=== PATIENT | female | born 1995 | race Caucasian/White ===

== ENCOUNTER → 2019-04-22 | Outpatient (CLI) | payer SELFPAY ==
[2019-04-22] VITALS (7 sets, daily range): BP systolic 120–147; BP diastolic 63–89
[~2019-04-22] VITALS: Ht 162.6 cm; Wt 111.4 kg
[~2019-04-22] MED LIST: LIDOCAINE 1% INJ 20 ML 20 ML VIAL ONE; NS IV 500 ML 500 ML IV SCH
[2019-04-22 16:01] LABS: BASOPHILS % (AUTO) 0 % (0-10); EOSINOPHILS # (AUTO) 0.1 10^3/uL (0.0-0.3); EOSINOPHILS % (AUTO) 1 % (0-10); HEMATOCRIT 21 % (35-52); LYMPHOCYTES # (AUTO) 1.8 X 10^3 (1.0-4.0); LYMPHOCYTES % (AUTO) 23 % (12-44); MEAN CORPUSCULAR HEMOGLOBIN 16 PG (25-34); MEAN CORPUSCULAR HGB CONC 27 G/DL (32-36); MEAN CORPUSCULAR VOLUME 59 FL (80-99); MEAN PLATELET VOLUME 10.8 FL (7.4-10.4); MONOCYTES # (AUTO) 0.4 X 10^3 (0.0-1.0); MONOCYTES % (AUTO) 5 % (0-12); NEUTROPHILS # (AUTO) 5.7 X 10^3 (1.8-7.8); NEUTROPHILS % (AUTO) 71 % (42-75); PLATELET COUNT 545 10^3/uL (130-400); WHITE BLOOD COUNT 7.9 10^3/uL (4.3-11.0)
[2019-04-22 16:02] LABS: HEMOGLOBIN 5.6 G/DL (11.5-16.0)
[2019-04-22 16:03] LABS: SMEAR SCAN COMMENT YES
[2019-04-22 23:36] LABS: BASOPHILS % (AUTO) 0 % (0-10); EOSINOPHILS # (AUTO) 0.1 10^3/uL (0.0-0.3); EOSINOPHILS % (AUTO) 1 % (0-10); HEMATOCRIT 26 % (35-52); HEMOGLOBIN 7.8 G/DL (11.5-16.0); LYMPHOCYTES # (AUTO) 2.8 X 10^3 (1.0-4.0); LYMPHOCYTES % (AUTO) 27 % (12-44); MEAN CORPUSCULAR HEMOGLOBIN 19 PG (25-34); MEAN CORPUSCULAR HGB CONC 30 G/DL (32-36); MEAN CORPUSCULAR VOLUME 63 FL (80-99); MONOCYTES % (AUTO) 9 % (0-12); NEUTROPHILS # (AUTO) 6.5 X 10^3 (1.8-7.8); NEUTROPHILS % (AUTO) 63 % (42-75); PLATELET COUNT 354 10^3/uL (130-400); RED CELL DISTRIBUTION WIDTH 29.2 % (10.0-14.5); WHITE BLOOD COUNT 10.4 10^3/uL (4.3-11.0)
[2019-04-23 00:20] VITALS: BP 147/89
--- NOTE | 2019-04-23 00:20 | NUR ---
INFORMED DR. WASHINGTON THAT PTS HGB-7.8. TELEPHONE ORDERS RECEIVED- OKAY TO DC PATIENT.
== END ==
LOC: SDC 14:47
PROVIDERS: ATTEND Family Medicine
DX: D62 Acute posthemorrhagic anemia (principal)
CPT/HCPCS: 36415; 36430; 85025; 86850; 86900; 86901; 86920

== ENCOUNTER 2019-04-24 04:52 | Emergency (ER) | payer SELFPAY ==
[~2019-04-24] VITALS: Ht 162.5 cm; Wt 111.4 kg
--- NOTE | 2019-04-24 05:32 | ED General ---
General Chief Complaint: Chest Wall Stated Complaint: CHEST PAINS, BACK PAIN, POST BLOOD TRANSFUSION Source of Information: Patient Exam Limitations: No Limitations (SARAH WILSON MED STUDENT) History of Present Illness Date Seen by Provider: Apr 24, 2019 Time Seen by Provider: 04:59 Initial Comments Pt presents to ED with chest pain two days after receiving a blood transfusion. Chest pain is substernal and radiates into her arm and around to her back. Pain is intermittent and is made worse by lying supine, improves with sitting upright. Denies fever, chills, diaphoresis, nausea, or vomiting. Blood transfusion was initiated after pt presented to [facility] for appointment regarding metromenorrhagia and anemia of 4.8 Hgb was discovered on fingerstick. Timing/Duration: 1-2 Days Severity: Mild Modifying Factors: improves with Immobilization, improves with Rest Associated Systoms: Chest Pain; No Cough, No Diaphoresis, No Fever/Chills, No Malaise, No Nausea/Vomiting, No Rash, No Shortness of Air, No Syncope (SARAH WILSON MED STUDENT) Allergies and Home Medications Allergies Coded Allergies: erythromycin base (Verified Adverse Reaction, Unknown, 04/22/19) Patient Home Medication List Home Medication List Reviewed: Yes (SARAH WILSON MED STUDENT) Review of Systems Review of Systems Constitutional: No chills, No diaphoresis, No fever, No malaise, No weakness EENTM: No hearing loss, No ear pain, No eye pain, No vision loss, No mouth pain, No nose pain, No throat pain Respiratory: No cough, No dyspnea on exertion, No short of breath Cardiovascular: chest pain; No edema, No palpitations, No syncope Gastrointestinal: No abdominal pain, No constipation, No diarrhea, No dysphagia, No nausea, No vomiting Genitourinary: No incontinence, No pain Musculoskeletal: back pain; No joint pain Skin: No lesions, No lumps, No rash Psychiatric/Neurological: Anxiety; Denies Depressed Hematologic/Lymphatic: Anemia; Denies Easy Bleeding, Denies Easy Bruising (SARAH WILSON MED STUDENT) Past Qlhhgbb-Qjrpjo-Luqsvw Hx Patient Social History Recent Foreign Travel: No Contact w/Someone Who Travel: No (SARAH WILSON MED STUDENT) Family Medical History Other Conditions/Hx (hyperthyroid - mother ) (HUNDERTMARK,SARAH,MED STUDENT) Physical Exam Vital Signs Vital Signs - First Documented 04/24/19 05:00 Temp 36.4 Pulse 90 Resp 20 B/P (MAP) 146/105 (119) (UMESH ROBLERO MD) Vital Signs Capillary Refill : (SARAH WILSON MED STUDENT) Height, Weight, BMI Height: '" Weight: lbs. oz. kg; BMI Method: General Appearance: No Apparent Distress, WD/WN, Obese Eyes: Bilateral Eye Normal Inspection, Bilateral Eye PERRL, Bilateral Eye EOMI HEENT: TMs Normal, Normal ENT Inspection, Pharynx Normal Neck: Non Tender, Supple Respiratory: Chest Non Tender, Lungs Clear, Normal Breath Sounds, No Accessory Muscle Use, No Respiratory Distress Cardiovascular: No Edema, No Gallop, No JVD, No Murmur, Normal Peripheral Pulses, Tachycardia Gastrointestinal: Non Tender, Soft Back: No CVA Tenderness, No Vertebral Tenderness Extremity: Normal Capillary Refill, No Calf Tenderness, No Pedal Edema Neurologic/Psychiatric: Alert, Oriented x3, Normal Mood/Affect Skin: Normal Color, Warm/Dry Lymphatic: No Adenopathy (SARAH WILSON MED STUDENT) Progress/Results/Core Measures Suspected Sepsis SIRS Temperature: Pulse: Respiratory Rate: Blood Pressure / Mean: (SARAH WILSON MED STUDENT) Results/Orders Vital Signs/I&O 04/24/19 05:00 Temp 36.4 Pulse 90 Resp 20 B/P (MAP) 146/105 (119) (UMESH ROBLERO MD) Vital Signs/I&O Capillary Refill : (SARAH WILSON MED STUDENT) Progress Note : Time: 05:14 Progress Note Seen and evaluated. Ordered CXR to r/o acute lung injury. Pt continues to be tachycardic. Reassured pt she was not having a reaction to the blood transfusion currently. Pt is extremely anxious being in the hospital, her anemia, and metromenorrhagia. Instructed pt she should follow up with the [facility] regarding these issues. (SARAH WILSON MED STUDENT) Progress Note : Time: 06:53 Progress Note 6:51 am I examined the patient and reviewed the history with the medical student. Pt's chest pain is gone. It was mild and intermittent starting 2 days after transfusion. Pt's cxr is normal. She is quite anxious and her intermittent resting tachycardia resolves quickly with reassurance. She has a plan for evaluation at [facility] tomorrow for hormonal treatment for her vaginal bleeding. She and her boyfriend are comfortable with resting at home today, close follow up at [facility] tomorrow, and coming back if she has any further problems to the ED. (UMESH ROBLERO MD) Departure Impression Primary Impression: Chest wall pain Disposition: 01 HOME, SELF-CARE Condition: Improved Departure-Patient Inst. Decision time for Depature: 07:00 (UMESH ROBLERO MD) Referrals: [facility],LOCAL PHYSICIAN (PCP) Primary Care Physician Patient Instructions: Pleuritic Chest Pain (DC) Add. Discharge Instructions: Rest at home today. Close follow up with [facility] as scheduled tomorrow. Come back if any problems to the Emgency Department today. All discharge instr uctions reviewed with patient and/or family. Voiced understanding. SARAH WILSON,MED STUDENT Apr 24, 2019 05:32 UMESH WASHINGTON MD Apr 24, 2019 07:00 POS
--- NOTE | 2019-04-24 06:25 | Diagnostic Imaging Report ---
INDICATION: Chest pain. COMPARISON: None available TECHNIQUE: Frontal and lateral radiographs of the chest dated 04/24/2019. FINDINGS: The cardiac silhouette and pulmonary vasculature are within normal limits. The lungs are clear. No pleural effusion. No pneumothorax. No acute osseous abnormality. IMPRESSION: No acute cardiopulmonary abnormality. Dictated by: Dictated on workstation # [id number]
--- NOTE | 2019-04-24 07:02 | NUR ---
ASSUMED CARE OF PT.
[2019-04-24 07:05] VITALS: BP 138/67
--- OUTSIDE RECORDS SUMMARY | 2019-05-19 17:04 | XMS REPORT ---
Author Author Gilda Berry Organization [facility] Address [address] [place] [address] Care Team Providers Care Reference Data Expert Name Role Phone alfredEZETRACEY WATSON Unavailable PROBLEMS Unknown Problems ALLERGIES No Information ENCOUNTERS Encounter Location Date Diagnosis [facility] [address] [facility] [id number] [place] [id number] Apr, Cough R05 ; Cough headache G44.83 ; Non- intractable vomiting with nausea, unspecified vomiting type R11.2 ; Acute nasopharyngitis J00 and BMI 40.0-44.9, adult Z68.[address] [place] [address], [place] [id number] Feb, test negative Z32.02 [facility] [id number] [place] [id number] Jan, Viral enteritis A08.4 and Acute nonintra ctable headache, unspecified headache type R51 [facility] [id number] [place], [place] [id number] Dec, Acute pharyngitis, unspecified etiology J02.9 [facility] [id number] [place] [address], [place] [id number] Nov, Screening for tuberculosis Z11.1 and Vis it for TB skin test Z11.1 [place] [address] [facility] [address] [id number] [id number] Oct, Dental examination V72.2 [facility] [address] [place] [id number] [address] [place] [phone] Aug, [facility] [address] [place] [id number] [address] [place] [phone] Aug, [place] [id number] [place] [address], [place] [id number] May, [facility] [address] [id number] [address] [place] [phone] May, [facility] [address] [id number] [place] [id number] Dec, [facility] [address] [id number] [address] [place] [phone] Dec, [facility] [address] [id number] [place] [id number] Nov, [facility] [address] [id number] [address] [place] [phone] Nov, [facility] [address] [id number] [address] [place] [phone] Nov, [facility] [address] [id number] [place] [id number] Nov, [facility] [address] [id number] [place] [id number] Jul, [facility] [address] [id number] [address] [place] [phone] Jul, [facility] [address] [id number] [place] [id number] Nov, [facility] [address] [facility] [id number] [address] [place] [phone] May, [facility] [address] [id number] [address] [place] [phone] May, [facility] [address] [id number] [place] [id number] Dec, IMMUNIZATIONS No Known Immunizations SOCIAL HISTORY Never Assessed REASON FOR VISIT PLAN OF CARE VITAL SIGNS Height 64 in 2014-05-31 Weight 180 lbs 2014-05-31 Temperature 99 degrees Fahrenheit 2014-05-31 Heart Rate 84 bpm 2014-05-31 Respiratory Rate 16 2014-05-31 Blood pressure systolic 118 mmHg 2014-05-31 Blood pressure diastolic 78 mmHg 2014-05-31 MEDICATIONS No Known Medications RESULTS No Results PROCEDURES No Known procedures INSTRUCTIONS MEDICATIONS ADMINISTERED No Known Medications MEDICAL (GENERAL) HISTORY Type Description Date Hospitalization History Migraine
--- OUTSIDE RECORDS SUMMARY | 2019-05-19 17:04 | XMS REPORT ---
Author Author Migration, Summer Doctor Organization [facility] Address Unknown Phone Unavailable Care Team Providers Care Audit Senior Associate Name Role Phone Migration, Doctor Unavailable Unavailable PROBLEMS Unknown Problems ALLERGIES No Information ENCOUNTERS Encounter Location Date Diagnosis [id number], [place] [id number] Apr, Cough R05 ; Cough headache G44.83 ; Non- intractable vomiting with nausea, unspecified vomiting type R11.2 ; Acute nasopharyngitis J00 and BMI 40.0-44.9, adult Z68.[address] [place] [address], [place] [id number] Feb, test negative Z32.02 [place] [id number] [place] [address], [place] [id number] Jan, Viral enteritis A08.4 and Acute nonintra ctable headache, unspecified headache type R51 [address], [place] [id number] Dec, Acute pharyngitis, unspecified etiology J02.[address] [id number] [place], [place] [id number] Nov, Screening for tuberculosis Z11.1 and Vis it for TB skin test Z11.[address] [id number] [place] [id number] Oct, Dental examination V72.2 [facility] [address] [facility] [id number] [address] [place] [phone] Aug, [facility] [address] [facility] [id number] [address] [place] [phone] Aug, [address] [id number] [place] [id number] May, [facility] [address] [place] [id number] [address] [place] [phone] May, [facility] [address] [id number] [place] [id number] Dec, [facility] [address] [id number] [address] [place] [phone] Dec, [facility] [address] [facility] [id number] [place] [id number] Nov, [facility] [address] [facility] [id number] [address] [place] [phone] Nov, [facility] [address] [facility] [id number] [address] [place] [phone] Nov, [facility] [address] [facility] [id number] [place] [id number] Nov, [facility] [place] [address] [facility] [id number] [place] [id number] Jul, [facility] [address] [facility] [id number] [address] [place] [phone] Jul, [facility] [address] [facility] [id number] [place] [id number] Nov, [facility] [address] [facility] [id number] [address] [place] [phone] May, [facility] [address] [facility] [id number] [address] [place] [phone] May, [facility] [address] [facility] [id number] [place] [id number] Dec, IMMUNIZATIONS No Known Immunizations SOCIAL HISTORY Never Assessed REASON FOR VISIT PLAN OF CARE VITAL SIGNS MEDICATIONS No Known Medications RESULTS No Results PROCEDURES No Known procedures INSTRUCTIONS MEDICATIONS ADMINISTERED No Known Medications MEDICAL (GENERAL) HISTORY Type Description Date Hospitalization History Migraine
--- OUTSIDE RECORDS SUMMARY | 2019-05-19 17:05 | XMS REPORT ---
Author Author Gilda BARAJAS [facility] Address [address] [place] [address] Care Team Providers Care Cattle Sorter Name Role Phone SHIV BARAJAS Unavailable PROBLEMS Type Condition ICD9-CM Code [id number] Code Onset Dates Condition S tatus SNOMED Code Assessment Viral enteritis A08.4 Jan, Active 70709960 Problem Other general medical examination for administrative purpo ses V70.3 Active 20749195 Problem Allergic rhinitis, cause unspecified 477.9 Active 01675308 Assessment Acute nonintractable headache, unspecified headache ty pe R51 Jan, Active 58937236 Problem Unspecified pruritic disorder 698.9 Active 950209394 Problem Contact dermatitis and other eczema, due to unspecified ca use 692.9 Active 88960398 Problem Influenza with other respiratory manifestations 487.1 Active 9679275 Problem Neck sprain and strain 847.0 Active 516426665 Problem Acute upper respiratory infections of unspecified site 465.9 Active 52602085 Problem Hypertrophy of tonsils alone 474.11 A ctive 59882940 ALLERGIES Substance Reaction Event Type Date Status N.K.D.A. Unknown Non Drug Allergy Jan, Unknown SOCIAL HISTORY No smoking Hx information available PLAN OF CARE VITAL SIGNS Height 64 in 2016-02-08 Weight 225.6 lbs 2016-02-08 Heart Rate 76 bpm 2016-02-08 Respiratory Rate 12 2016-02-08 BMI 38.72 kg/m2 2016-02-08 Blood pressure systolic 116 mmHg 2016-02-08 Blood pressure diastolic 70 mmHg 2016-02-08 MEDICATIONS Medication Instructions Dosage Frequency Start Date End Date Duration S tatus Qjdtfqhpee-VNOV-Ianafywi 50-325-40 MG Orally every 4 hrs 1 tablet a s needed 4h Jan, Active Zofran ODT 4 MG Orally every 8 hrs 1 tablet on the tongue and al low to dissolve 8h Jan, 30 day(s) Active Phentermine HCl 37.5 MG Orally Once a day 1.5 tablets 24h Active RESULTS No Results PROCEDURES Procedure Date Ordered Related Diagnosis Body Site Office Visit, Est Pt., Level 3 Feb 08, 2016 IMMUNIZATIONS No Known Immunizations
--- OUTSIDE RECORDS SUMMARY | 2019-05-19 17:05 | XMS REPORT ---
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 Name Role Phone RILEY RAMOS CP Unavailable Allergies No Known Allergies Problems Problem Type Condition Code Onset Dates Condition Statu s Assessment Visit for TB skin test Z11.1 Activ e Problem Allergic rhinitis, cause unspecified 477.9 Active Assessment Screening for tuberculosis Z11.1 A ctive Problem Contact dermatitis and other eczema, due to unspecifie d cause 692.9 Active Problem Acute upper respiratory infections of unspecified site 465.9 Active Problem Unspecified pruritic disorder 698.9 Active Problem Neck sprain and strain 847.0 Activ e Problem Other general medical examination for administrative p urposes V70.3 Active Problem Hypertrophy of tonsils alone 474.11 Active Problem Influenza with other respiratory manifestations 487.1 Active Medications No Known Medications Procedures Procedure Coding System Code Date TB INTRADERMAL TEST CPT-4 92183 December 10 6 Results No Known Results Summary Purpose [employer] Submission
--- OUTSIDE RECORDS SUMMARY | 2019-05-19 17:05 | XMS REPORT ---
Author Author Gilda RAMOS Organization [employer] Address Unknown Phone Unavailable Care Team Providers Care Cooper Apprentice Name Role Phone RILEY RAMOS CP Unavailable Allergies, Adverse Reactions, Alerts Substance Reaction Event Type N.K.D.A. Info Not Available Non Drug Allergy Problems Problem Type Condition Code Onset Dates Condition Statu s Problem Allergic rhinitis, cause unspecified 477.9 Active Assessment Acute pharyngitis, unspecified etiology J02.9 Active Problem Contact dermatitis and other eczema, due [...] Medications Procedures Procedure Coding System Code Date Office Visit, Est Pt., Level 3 CPT-4 20565 A 2015 Vital Signs Date/Time: Dec 25, 2015 Cardiac Monitoring Heart Rate 80 bpm Weight 229 lbs Height 64 in Wt Percentile 98.92 % BMI 39.30 Index Blood Pressure Diastolic 64 mmHg Blood Pressure Systolic 120 mmHg BMIPercentile 98.45 % Results No Known Results Summary Purpose [employer] Submission
--- OUTSIDE RECORDS SUMMARY | 2019-05-19 17:05 | XMS REPORT ---
Author Author Gilda THOMASHA Organization [facility] Address [address] [place] [address] Care Team Providers Care Senior Foreman Name Role Phone JC THOMAS Unavailable PROBLEMS Unknown Problems ALLERGIES Substance Reaction Event Type Date Status Erythromycin Base redness, itchy Drug Allergy Apr, Active ENCOUNTERS Encounter Location Date Diagnosis [place] [id number] [place] [address], [place] [id number] Apr, Cough R05 ; Cough headache G44.83 ; Non- intractable vomiting with nausea, unspecified vomiting type R11.2 ; Acute nasopharyngitis J00 and BMI 40.0-44.9, adult Z68.41 [place] [id number] [place] [address], [place] [id number] Feb, test negative Z32.02 [place] [id number] [place] [address], S [id number] Jan, Viral enteritis A08.4 and Acute nonintra ctable headache, unspecified headache type R51 [place] [id number] [place] [address], [place] [id number] Dec, Acute pharyngitis, unspecified etiology J02.9 [place] [id number] [place], [place] [address], [place] [id number] Nov, Screening for tuberculosis Z11.1 and Vis it for TB skin test Z11.1 [place] [address] [facility] [id number] [place] [id number] Oct, Dental examination V72.2 [facility] [address] [place] [phone] Aug, [facility] [address] [place] [id number] [address] [place] [phone] Aug, [facility] [address] [id number] [place] [id number] May, [facility] [address] [id number] [address] [place] [phone] May, [facility] [address] [id number] [place] [id number] Dec, [facility] [address] [id number] [address] [place] [phone] Dec, [facility] [address] [id number] [place] [id number] Nov, [facility] [address] [id number] [address] [place] [phone] Nov, [facility] [address] [facility] [id number] [address] [place] [phone] Nov, [facility] [address] [id number] [place] [id number] Nov, [facility] [address] [id number] [place] [id number] Jul, [facility] [address] [facility] [id number] [address] [place] [phone] Jul, [facility] [address] [id number] [place] [id number] Nov, [facility] [address] [facility] [id number] [address] [place] [phone] May, [facility] [address] [id number] [address] [place] [phone] May, [facility] [address] [id number] [place] [id number] Dec, IMMUNIZATIONS No Known Immunizations SOCIAL HISTORY Never Assessed REASON FOR VISIT Vomiting/Cough/headache for 2 days Phong LEBRON PLAN OF CARE Activity Details Follow Up if s/s not improving with PC P or in Clinic Reason: VITAL SIGNS Height 64 in 2017-04-21 Weight 254.8 lbs 2017-04-21 Temperature 98.6 degrees Fahrenheit 2017-04-21 Heart Rate 102 bpm 2017-04-21 Respiratory Rate 18 2017-04-21 Oximetry 99 % 2017-04-21 BMI 43.73 kg/m2 2017-04-21 Blood pressure systolic 112 mmHg 2017-04-21 Blood pressure diastolic 68 mmHg 2017-04-21 MEDICATIONS Medication Instructions Dosage Frequency Start Date End Date Duration S yennyus Pseudoephedrine HCl 30 MG Orally every 6 hrs 1 tablet as needed 6h Apr, 05 days Active Phenergan 25 MG Orally every 6 hrs 1 tablet as needed 6h 2016Apr, 03 days Active Ibuprofen 800 MG Orally Three times a day 1 tablet with food or milk as needed 8h Apr, Apr, 07 days Active RESULTS No Results PROCEDURES Procedure Date Ordered Result Body Site MEASURE BLOOD OXYGEN LEVEL Apr 21, 2017 INSTRUCTIONS MEDICATIONS ADMINISTERED No Known Medications MEDICAL (GENERAL) HISTORY Type Description Date Hospitalization History Migraine
--- OUTSIDE RECORDS SUMMARY | 2019-05-19 17:05 | XMS REPORT ---
Author Author Migration, Summer Doctor Organization [facility] Address Unknown Phone Unavailable Care Team Providers Care Rayon Winder Name Role Phone Migration, Doctor Unavailable Unavailable PROBLEMS Unknown Problems ALLERGIES No Information ENCOUNTERS Encounter Location Date Diagnosis [id number], [place] [id number] Apr, Cough R05 ; Cough headache G44.83 ; Non- intractable vomiting with nausea, unspecified vomiting type R11.2 ; Acute nasopharyngitis J00 and BMI 40.0-44.9, adult Z68.[id number] [place] [address], [place] [id number] Feb, test negative Z32.02 [place] [id number] [place] [address], [place] [id number] Jan, Viral enteritis A08.4 and Acute nonintra ctable headache, unspecified headache type R51 [id number], [place] [id number] Dec, Acute pharyngitis, unspecified etiology J02.[address] [id number] [place] [id number] Nov, Screening for tuberculosis Z11.1 and Vis it for TB skin test Z11.[address] [id number] [id number] Oct, Dental examination V72.2 [facility] [address] [facility] [id number] [address] [place] [phone] Aug, [facility] [address] [facility] [id number] [address] [place] [phone] Aug, [facility] [address] [facility] [id number] [place] [id number] May, [facility] [address] [place] [id number] [address] [place] [phone] May, [facility] [address] [id number] [place] [id number] Dec, [facility] [address] [id number] [address] [place] [phone] Dec, [facility] [address] [facility] [id number] [place] [id number] Nov, [facility] [address] [facility] [id number] [address] [place] [phone] Nov, [facility] [address] [facility] [id number] [address] [place] [phone] Nov, [facility] [address] [facility] [id number] [place] [id number] Nov, [facility] [address] [facility] [id number] [place] [id number] Jul, [facility] [address] [facility] [id number] [address] [place] [phone] Jul, [facility] [address] [facility] [id number] [place] [id number] Nov, [facility] [address] [facility] [id number] [address] [place] [phone] May, [facility] [address] [facility] [id number] [address] [place] [phone] May, [facility] [address] [facility] [id number] [place] [id number] Dec, IMMUNIZATIONS No Known Immunizations SOCIAL HISTORY Never Assessed [place]AS[place] FOR [place] VITAL SIGNS MEDICATIONS No Known Medications RESULTS No Results PROCEDURES No Known procedures INSTRUCTIONS MEDICATIONS ADMINISTERED No Known Medications MEDICAL (GENERAL) HISTORY Type Description Date Hospitalization History Migraine
--- OUTSIDE RECORDS SUMMARY | 2019-05-19 17:05 | XMS REPORT ---
Author Author Gilda WITT Y Organization [employer] Address Unknown Phone Unavailable Care Team Providers Care [place] Name Role Phone DIVYA WITT CP Unavailable Allergies No Known Allergies Problems Problem Type Condition Code Onset Dates Condition Statu s Problem Allergic rhinitis, cause unspecified 477.9 Active Assessment test negative Z32.02 Acti ve Problem Contact dermatitis and other eczema, due [...] Medications Procedures Procedure Coding System Code Date URINE TEST CPT-4 38420 Feb 20 6 Results Name Result Date Reference Range Unit Abnormali ty Flag TEST, URINE (IN HOUSE) ----RESULTS neg [id number] ----Lot # [id number] ----Control + [id number] ----Exp date 08/15/1720160221 Summary Purpose [employer] Submission
--- OUTSIDE RECORDS SUMMARY | 2019-05-19 17:05 | XMS REPORT ---
Author Author Migration, Summer Doctor Organization [facility] Address Unknown Phone Unavailable Care Team Providers Care Hospital Insurance Representative Name Role Phone Migration, Doctor Unavailable Unavailable PROBLEMS Unknown Problems ALLERGIES No Information ENCOUNTERS Encounter Location Date Diagnosis [address], [place] [id number] Apr, Cough R05 ; Cough headache G44.83 ; Non- intractable vomiting with nausea, unspecified vomiting type R11.2 ; Acute nasopharyngitis J00 and BMI 40.0-44.9, adult Z68.[address] [place] [address], [place] [id number] Feb, test negative Z32.02 [place] [id number] [place] [address], [place] [id number] Jan, Viral enteritis A08.4 and Acute nonintra ctable headache, unspecified headache type R51 [address], [place] [id number] Dec, Acute pharyngitis, unspecified etiology J02.[address] [id number] [place], [place] [id number] Nov, Screening for tuberculosis Z11.1 and Vis it for TB skin test Z11.[address] [id number] [id number] Oct, Dental examination V72.2 [facility] [address] [facility] [id number] [address] [place] [phone] Aug, [facility] [address] [facility] [id number] [address] [place] [phone] Aug, [address] [id number] [place] [id number] May, [facility] [address] [place] [id number] [address] [place] [phone] May, [facility] [address] [id number] [place] [id number] Dec, [facility] [address] [facility] [id number] [address] [place] [phone] Dec, [facility] [address] [facility] [id number] [place] [id number] Nov, [facility] [address] [facility] [id number] [address] [place] [phone] Nov, [facility] [address] [facility] [id number] [address] [place] [phone] Nov, [facility] [address] [facility] [id number] [place] [id number] Nov, [facility] [address] [facility] [id number] [place] [id number] Jul, [facility] [address] [facility] [id number] [address] [place] [phone] Jul, [facility] [address] [facility] [id number] [place] [id number] Nov, [facility] [address] [facility] [id number] [address] [place] [phone] May, [facility] [address] [facility] [id number] [address] [place] [phone] May, [facility] [address] [facility] [id number] [place] [id number] Dec, IMMUNIZATIONS No Known Immunizations SOCIAL HISTORY Never Assessed REASON FOR VISIT EMR-[facility] PLAN OF CARE VITAL SIGNS MEDICATIONS Medication Instructions Dosage Frequency Start Date End Date Duration S tatus Bactroban 2 % 1 janet by Topical route 2 times per day f or 14 day(s) Nov, Active Keflex 250 mg 2 capsule by Oral route 2 times per day for 10 days Nov, Active Ibuprofen 800 mg take 1 tablet (800 m g) by oral route 3 times per day with food Nov, Active Flexeril 5 mg 1 tablet by Oral route 3 times per day PRN Nov, Active RESULTS No Results PROCEDURES No Known procedures INSTRUCTIONS MEDICATIONS ADMINISTERED No Known Medications MEDICAL (GENERAL) HISTORY Type Description Date Hospitalization History Migraine
== END 2019-04-24 07:05 | disposition home or self-care (01) ==
LOC: EDUNIT# 04:52 → ER 04:53
DX: R07.89 Other chest pain (principal); Z88.1 Allergy status to other antibiotic agents
CPT/HCPCS: 71046